=== PATIENT | female | born 1985 | race Caucasian/White ===

== ENCOUNTER 2017-02-06 16:46 | Observation (INO) | payer OTHER ==
[~2017-02-06] VITALS: Ht 167.6 cm; Wt 53.6 kg
[2017-02-06] MEDS ORDERED: ONDANSETRON 2MG/ML, 2ML ONE (17:22)
[2017-02-06] MEDS ORDERED: SODIUM CHLORIDE 0.9% 1,000ML IVBOLUS ONE ×2 (17:30→20:00)
[2017-02-06] MEDS ORDERED: ONDANSETRON 2MG/ML, 2ML IVPush ONE (17:30)
[2017-02-06] MEDS ORDERED: SODIUM CHLORIDE FLUSH 10ML SYR IVF ONE (17:30)
[2017-02-06 18:27] LABS: HEMATOCRIT 38.9 % (34.6-47.8); HEMOGLOBIN 13.3 g/dL (11.7-16.4); WHITE BLOOD COUNT 7.9 x10^3/uL (3.4-10)
[2017-02-06 18:29] LABS: ASPARTATE AMINO TRANSFERASE 17 U/L (15-37); BLOOD UREA NITROGEN 9 mg/dL (7-18)
[2017-02-06] MEDS ORDERED: SODIUM CHLORIDE 0.9% 1,000 ML IV ONE (19:50)
[2017-02-06] MEDS ORDERED: ONDANSETRON 2MG/ML, 2ML IVPush PRN ×2 (20:00→22:30)
[2017-02-06] MEDS ORDERED: ONDA4TAB10 PO (20:00)
[2017-02-06] MEDS ORDERED: SODIUM CHLORIDE FLUSH 10ML SYR IVF PRN (20:00)
[2017-02-06] MEDS ORDERED: DOXY1TAB3 PO (20:00)
[2017-02-06 21:13] VITALS: BP 109/75
[2017-02-06] MEDS ORDERED: MVI ADULT IV SCH (22:06)
[2017-02-06] MEDS ORDERED: POTASSIUM CHLORIDE IV SCH ×2 (22:06→22:30)
[2017-02-06] MEDS ORDERED: MAGNESIUM SULFATE IV SCH ×2 (22:06→22:30)
[2017-02-06] MEDS ORDERED: [UNRECOGNIZED DRUG - OTHER] IV SCH (22:06)
[2017-02-06] MEDS ORDERED: THIAMINE IV SCH ×2 (22:06→22:30)
[2017-02-06] MEDS ORDERED: PROMETHAZINE 25 MG/ML, 1ML IM PRN (22:30)
[2017-02-06] MEDS ORDERED: HYDROcodone/APAP 5/325 TABLET PO PRN (22:30)
[2017-02-06] MEDS ORDERED: METOCLOPRAMIDE 5 MG/ML, 2ML IVPush PRN (22:30)
[2017-02-06] MEDS ORDERED: ONDANSETRON ODT 4 MG PO PRN (22:30)
[2017-02-06] MEDS ORDERED: FOLIC ACID IV SCH (22:30)
[2017-02-06] MEDS ORDERED: [UNRECOGNIZED DRUG - OTHER] IV SCH (22:30)
[2017-02-06] MEDS ORDERED: ACETAMINOPHEN 325 MG TABLET PO PRN (22:30)
[2017-02-07 01:36] VITALS: BP 106/86
[2017-02-07 05:48] LABS: BLOOD UREA NITROGEN 6 mg/dL (7-18)
[2017-02-07] MEDS ORDERED: POTASSIUM CHLORIDE 20 MEQ in D5%-0.9% NACL 1,000 ML IV SCH (07:00)
[2017-02-07 07:02] VITALS: BP 103/64
[2017-02-07] MEDS ORDERED: METO10TA82 PO (10:51)
== END 2017-02-07 12:05 | disposition home or self-care (01) ==
LOC: ED 18:12 → INTOOBSV 19:50 → EDIP 19:50 → 3NE 21:10 → DCLOUNGE 02-07 10:25
PROVIDERS: ADMIT Student in an Organized Health Care Education/Training Program; ATTEND Student in an Organized Health Care Education/Training Program
DX: O21.1 Hyperemesis gravidarum with metabolic disturbance (principal); O99.281 Endocrine, nutritional and metabolic diseases complicating pregnancy, first trimester; E86.0 Dehydration; E87.6 Hypokalemia; E87.1 Hypo-osmolality and hyponatremia; R55 Syncope and collapse; Z3A.13 13 weeks gestation of pregnancy; Z87.440 Personal history of urinary (tract) infections
CPT/HCPCS: 36415; 80048; 80053; 81001; 81003; 83735; 84439; 84443; 85025; 87086; 93005; 96361; 96365; 96366; 96372; 96375; 99285; G0378; J2405; J2550; J2765; J3411; J3475; J3480; J7030; J7042

== ENCOUNTER 2017-03-31 17:25 | Outpatient (CLI) | payer OTHER ==
[~2017-03-31] VITALS: Ht 167.6 cm; Wt 55.9 kg
[~2017-03-31 17:25] MED LIST: DOXY1TAB3 PO; METO10TA82 PO; ONDA4TAB10 PO
[2017-03-31 17:51] VITALS: BP 112/76
== END 2017-03-31 19:00 | disposition home or self-care (01) ==
LOC: LDOP 17:25
PROVIDERS: ATTEND Obstetrics & Gynecology
DX: O26.892 Other specified pregnancy related conditions, second trimester (principal); O21.0 Mild hyperemesis gravidarum; O99.512 Diseases of the respiratory system complicating pregnancy, second trimester; O99.342 Other mental disorders complicating pregnancy, second trimester; F32.9 Major depressive disorder, single episode, unspecified; J45.909 Unspecified asthma, uncomplicated; R10.32 Left lower quadrant pain; Z3A.21 21 weeks gestation of pregnancy
CPT/HCPCS: 59025; 81001; 99211; G0463